=== PATIENT | male | born 1970 | race Caucasian/White ===

== ENCOUNTER 2024-03-07 18:44 | Inpatient (IN) | payer OTHER ==
[~2024-03-07] VITALS: Ht 172.7 cm; Wt 93.9 kg
[2024-03-08] MEDS ORDERED: VANCOMYCIN 1G PREMIX 200 ML IV SCH (00:45)
[2024-03-08] MEDS: PIPERACILLIN/TAZO 3.375G/50ML 50 ML IV STA (01:21)
[2024-03-08] MEDS: TETANUS, DIPHTHERIA, PERTUSSIS VAC/PF 0.5ML (>10YR OLD) IM ONE (01:21)
[2024-03-08 01:24] LABS: EOSINOPHILS % 1.7 % (0.0-5.0); HEMATOCRIT. 45.8 % (42.0-52.0); LYMPHOCYTES % 34.7 % (20.0-50.0); MEAN CORPUSCULAR HEMOGLOBIN 30.5 pg (28.0-32.0); MEAN PLATELET VOLUME 8.2 fl (7.4-10.4); NEUTROPHILS % 54.6 % (40.0-76.0); PLATELET 258 x1000/uL (130-400); RED BLOOD CELL COUNT 5.26 mill/uL (4.7-6.1); RED CELL DISTRIBUTION WIDTH 12.9 % (11.6-14.6); WHITE BLOOD COUNT 7.2 x1000/uL (4.5-11.0)
[2024-03-08 01:28] LABS: CHLORIDE 105 mEq/L (98-107); POTASSIUM 3.8 mEq/L (3.5-5.1); SODIUM 138 mEq/L (136-145)
[2024-03-08 01:29] LABS: CARBON DIOXIDE 28 mEq/L (21-32)
[2024-03-08 01:30] LABS: CALCIUM 9.8 mg/dL (8.7-10.4)
[2024-03-08 01:34] LABS: GLUCOSE 104 mg/dL (70-105); UREA NITROGEN BLOOD 16 mg/dL (9-23)
[2024-03-08] MEDS: VANCOMYCIN 1GM PMX (XELLIA) 200 ML IV NR (01:47)
[2024-03-08] MEDS: AMPICILLIN SOD/SULBACTAM NA 3 G in SODIUM CHLORIDE 0.9% 100 ML IV STA (02:30)
[2024-03-08 08:00] VITALS: BP 152/93; PULSE 83; RESP 18; TEMP 36.89184; O2SAT 99
[2024-03-08 09:48] VITALS: BP 152/93; PULSE 73; RESP 20; TEMP 36.9184
[2024-03-08] MEDS: SODIUM HYPOCHLORITE 0.125% 473ML SOLUTION TOP SCH (11:23)
[2024-03-08] MEDS ORDERED: KETOROLAC 30MG/ML VIAL IV PRN (11:30)
[2024-03-08 12:00] VITALS: BP 136/82; PULSE 76; RESP 18; TEMP 35.39172; O2SAT 97
[2024-03-08] MEDS: AMPICILLIN SOD/SULBACTAM NA 3 G in SODIUM CHLORIDE 0.9% 100 ML IV SCH (13:43)
[2024-03-08] MEDS ORDERED: AMOX1TAB16 MT (13:53)
[2024-03-08 14:09] VITALS: BP 152/93; PULSE 73; TEMP 98.4; O2SAT 100
== END 2024-03-08 15:39 | disposition home or self-care (01) | DRG 351 ==
LOC: ER 18:44 → EDBD 18:44 → 6EST 03-08 04:45 → EDBEDREQ 03-08 04:47
PROVIDERS: ADMIT Internal Medicine; ATTEND Internal Medicine
DX: S61.253A Open bite of left middle finger without damage to nail, initial encounter (principal); L03.012 Cellulitis of left finger; W54.0XXA Bitten by dog, initial encounter; Y93.89 Activity, other specified; Y92.89 Other specified places as the place of occurrence of the external cause; Y99.8 Other external cause status
CPT/HCPCS: 36415; 73130; 80048; 85025; 90715; 99285; J0295; J2543; J3370; J7050